=== PATIENT | male | born 1965 | race Caucasian/White ===

== ENCOUNTER 2023-09-29 10:40 | Inpatient (IN) | payer MEDICAID ==
[~2023-09-29] VITALS: Ht 175.3 cm; Wt 71.8 kg
[2023-09-29] VITALS (7 sets, daily range): BP systolic 90–107; BP diastolic 60–64; PULSE 99–118; RESP 16–21; TEMP 97.6–98.6; O2SAT 93–97
[2023-09-29] MEDS: methylPREDNISolone sod succ 125mg/2ml vial IV ONE (11:33)
[2023-09-29 11:37] LABS: BASOPHILS # (AUTO) 0.1 X10'3 (0-0.2); BASOPHILS % (AUTO) 0.8 % (0-1); EOSINOPHILS # (AUTO) 0.1 X10'3 (0-0.9); EOSINOPHILS % (AUTO) 0.9 % (0-6); HEMATOCRIT 43.7 % (42.0-52.0); HEMOGLOBIN 14.3 g/dl (14.0-17.9); LYMPHOCYTES # (AUTO) 1.6 X10'3 (1.1-4.8); MEAN CORPUSCULAR HEMOGLOBIN 29.3 PG (27.0-31.0); MEAN CORPUSCULAR HGB CONC 32.8 g/dL (33.0-36.5); MEAN CORPUSCULAR VOLUME 89.3 FL (78-98); MEAN PLATELET VOLUME 7.2 FL (7.4-10.4); MONOCYTES % (AUTO) 9.6 % (2-12); NEUTROPHILS % (AUTO) 73.7 % (42-75); PLATELET COUNT 252 X10'3 (140-440); RED BLOOD COUNT 4.89 X10'6 (4.70-6.10); WHITE BLOOD COUNT 10.8 X10'3 (4.5-11.0)
[2023-09-29] MEDS: albuterol 2.5 MG/3 ML nebule CONTNEB PRN (11:40)
[2023-09-29 11:49] LABS: ABG BASE EXCESS -0.5 mmol/L (-2.0-2.0); ABG HCO3 23.2 mmol/L (22.0-26.0); ABG PCO2 (T) 35.5 mmHg (35.0-48.0); ABG PH (T) 7.434 (7.340-7.440); ABG PO2 (T) 88.2 mmHg (75.0-100.0); ALLEN'S TEST POSITIVE; FCOHb 0.6 % (0.0-3.9); FMetHb 0.3 % (0.0-1.5); FO2Hb 96.1 % (94-97); MODE ROOM AIR; TOTAL HEMOGLOBIN 14.4 G/dl (14.0-17.9)
[2023-09-29 12:00] LABS: ANION GAP 9 (8-16); BLOOD UREA NITROGEN 14 MG/DL (7-18); BUN/CREATININE RATIO 15.6 (10.0-20.0); CALCIUM 8.8 MG/DL (8.5-10.1); CHLORIDE 104 MMOL/L (99-107); GLUCOSE 132 MG/DL (70-104); POTASSIUM 4.6 MMOL/L (3.5-5.1); PRO BRAIN NATRIURETIC PEPTIDE 12787 PG/ML (0-125); SODIUM 137 MMOL/L (135-145); TOTAL CARBON DIOXIDE 24.5 MMOL/L (24-32); eCRCL 91 ML/MIN; eGFR 87 ML/MIN
[2023-09-29] MEDS: furosemide 10 MG/1 ML 10ml inj IV ONE (12:39)
[2023-09-29] MEDS ORDERED: ondansetron/PF 4mg/2ml inj IV PRN (13:20)
[2023-09-29] MEDS ORDERED: magnesium Cl slow-release 64mg tablet PO PRN (13:20)
[2023-09-29] MEDS ORDERED: magnesium 2GM in 50ml NS 50 ML IV PRN (13:20)
[2023-09-29] MEDS ORDERED: magnesium 4gm in 100ml NS 100 ML IV PRN (13:20)
[2023-09-29] MEDS ORDERED: potassium Cl 40MEQ/1/2NS 520ml 520 ML IV PRN (13:20)
[2023-09-29] MEDS ORDERED: acetaminophen 325mg tablet PO PRN (13:20)
[2023-09-29] MEDS ORDERED: potassium Cl 20 mEq SR tablet PO PRN ×2 (13:20)
[2023-09-29] MEDS: PERFLUTREN PROTEIN-A MICROSPHR (Optison) 0.22 MG/ML 3ML VIAL IV ONE (13:35)
[2023-09-29 14:22] LABS: MAGNESIUM 1.8 MG/DL (1.5-2.4); POTASSIUM 3.9 MMOL/L (3.5-5.1)
[2023-09-29] MEDS: ipratropium/albuterol 3ml nebule NEB ONE (16:54)
[2023-09-29] MEDS ORDERED: NO HOME MEDS (17:21)
[2023-09-29] MEDS: K and/or MAG REPLACEMENT MC SCH (20:00)
[2023-09-29] MEDS: methylPREDNISolone sod succ/PF 40mg inj. IV SCH (20:11)
[2023-09-30 02:00] VITALS: BP 90/60; PULSE 104; RESP 19; TEMP 98; O2SAT 96
[2023-09-30 03:59] VITALS: BP 108/70; PULSE 114; RESP 20; O2SAT 98
[2023-09-30 06:00] VITALS: BP 94/53; PULSE 108; RESP 18; TEMP 97.9; O2SAT 94
[2023-09-30 06:14] LABS: BASOPHILS % (AUTO) 0.1 % (0-1); EOSINOPHILS % (AUTO) 0 % (0-6); HEMATOCRIT 41.9 % (42.0-52.0); HEMOGLOBIN 13.7 g/dl (14.0-17.9); LYMPHOCYTES # (AUTO) 0.6 X10'3 (1.1-4.8); MEAN CORPUSCULAR HGB CONC 32.6 g/dL (33.0-36.5); MEAN PLATELET VOLUME 7.2 FL (7.4-10.4); MONOCYTES # (AUTO) 0.2 X10'3 (0-0.9); MONOCYTES % (AUTO) 1.1 % (2-12); NEUTROPHILS # (AUTO) 18.5 X10'3 (1.8-7.7); NEUTROPHILS % (AUTO) 95.8 % (42-75); PLATELET COUNT 262 X10'3 (140-440); RED BLOOD COUNT 4.71 X10'6 (4.70-6.10); RED CELL DISTRIBUTION WIDTH 14.9 % (11.5-14.5); WHITE BLOOD COUNT 19.4 X10'3 (4.5-11.0)
[2023-09-30 06:29] LABS: ALBUMIN 2.6 G/DL (3.4-5.0); ANION GAP 6 (8-16); BLOOD UREA NITROGEN 17 MG/DL (7-18); BUN/CREATININE RATIO 18.1 (10.0-20.0); CALCIUM 8.5 MG/DL (8.5-10.1); CHLORIDE 98 MMOL/L (99-107); CREATININE 0.94 MG/DL (0.60-1.10); GLUCOSE 199 MG/DL (70-104); MAGNESIUM 1.7 MG/DL (1.5-2.4); POTASSIUM 3.9 MMOL/L (3.5-5.1); SODIUM 133 MMOL/L (135-145); eCRCL 87 ML/MIN; eGFR 83 ML/MIN
[2023-09-30] MEDS ORDERED: lisinopril 2.5mg tablet PO SCH (08:00)
[2023-09-30 08:45] VITALS: BP 108/73; PULSE 115
[2023-09-30] MEDS: furosemide 40mg/4ml inj IV SCH (08:45)
[2023-09-30] MEDS: carVEDilol 3.125mg tablet PO SCH (08:49)
== END 2023-09-30 10:26 | disposition left against medical advice (07) | DRG 144 ==
LOC: ER 10:41 → ED HOLD 13:24 → PCU 3S 21:15
PROVIDERS: ADMIT Internal Medicine; ATTEND Internal Medicine
DX: J98.01 Acute bronchospasm (principal); I50.23 Acute on chronic systolic (congestive) heart failure; I11.0 Hypertensive heart disease with heart failure; F15.90 Other stimulant use, unspecified, uncomplicated; J44.9 Chronic obstructive pulmonary disease, unspecified; Z87.891 Personal history of nicotine dependence; Z56.0 Unemployment, unspecified; Z59.00 Homelessness unspecified; Z79.899 Other long term (current) drug therapy; Z88.1 Allergy status to other antibiotic agents; Z88.5 Allergy status to narcotic agent; Z88.0 Allergy status to penicillin; Z71.51 Drug abuse counseling and surveillance of drug abuser
CPT/HCPCS: 36415; 36600; 71045; 80048; 82803; 83735; 83880; 84132; 84484; 85018; 85025; 87081; 87502; 87503; 93005; 93306; 94640; 94760; 96374; 96375; 99285; A7015; G0378; J1940; J2920; J2930

== ENCOUNTER 2023-10-02 09:50 | Inpatient (IN) | payer MEDICAID ==
[~2023-10-02] VITALS: Ht 175.3 cm; Wt 63.9 kg
[~2023-10-02 09:50] MED LIST: NO HOME MEDS
[2023-10-02 11:19] LABS: BASOPHILS # (AUTO) 0.1 X10'3 (0-0.2); BASOPHILS % (AUTO) 0.5 % (0-1); EOSINOPHILS # (AUTO) 0.1 X10'3 (0-0.9); EOSINOPHILS % (AUTO) 0.6 % (0-6); HEMOGLOBIN 14.4 g/dl (14.0-17.9); LYMPHOCYTES # (AUTO) 1.8 X10'3 (1.1-4.8); LYMPHOCYTES % (AUTO) 10.3 % (21-51); MEAN CORPUSCULAR VOLUME 90.4 FL (78-98); MONOCYTES # (AUTO) 1.3 X10'3 (0-0.9); MONOCYTES % (AUTO) 7.5 % (2-12); NEUTROPHILS # (AUTO) 14.1 X10'3 (1.8-7.7); NEUTROPHILS % (AUTO) 81.1 % (42-75); PLATELET COUNT 288 X10'3 (140-440); RED BLOOD COUNT 4.97 X10'6 (4.70-6.10); RED CELL DISTRIBUTION WIDTH 15.2 % (11.5-14.5); WHITE BLOOD COUNT 17.4 X10'3 (4.5-11.0)
[2023-10-02 11:45] LABS: ALBUMIN 3.1 G/DL (3.4-5.0); ANION GAP 4 (8-16); BLOOD UREA NITROGEN 22 MG/DL (7-18); CALCIUM 8.5 MG/DL (8.5-10.1); CHLORIDE 99 MMOL/L (99-107); GLUCOSE 125 MG/DL (70-104); POTASSIUM 4.1 MMOL/L (3.5-5.1); PRO BRAIN NATRIURETIC PEPTIDE 9541 PG/ML (0-125); SODIUM 133 MMOL/L (135-145); TOTAL CARBON DIOXIDE 30.2 MMOL/L (24-32); eCRCL 75 ML/MIN; eGFR 77 ML/MIN
[2023-10-02] MEDS: furosemide 10 MG/1 ML 10ml inj IV ONE (13:49)
[2023-10-02] MEDS ORDERED: acetaminophen 325mg tablet PO PRN (14:55)
[2023-10-02] MEDS ORDERED: magnesium Cl slow-release 64mg tablet PO PRN (14:55)
[2023-10-02] MEDS ORDERED: magnesium 4gm in 100ml NS 100 ML IV PRN (14:55)
[2023-10-02] MEDS ORDERED: potassium Cl 20 mEq SR tablet PO PRN ×2 (14:55)
[2023-10-02] MEDS ORDERED: ondansetron/PF 4mg/2ml inj IV PRN (14:55)
[2023-10-02] MEDS ORDERED: magnesium 2GM in 50ml NS 50 ML IV PRN (14:55)
[2023-10-02] MEDS ORDERED: potassium Cl 40MEQ/1/2NS 520ml 520 ML IV PRN (14:55)
[2023-10-02 20:00] VITALS: RESP 24; O2SAT 98
[2023-10-02] MEDS: K and/or MAG REPLACEMENT MC SCH (20:00)
[2023-10-02 21:50] VITALS: BP 108/73; PULSE 117; RESP 24; TEMP 98; O2SAT 98
[2023-10-02] MEDS: lisinopril 5mg tablet PO SCH (22:59)
[2023-10-03 02:00] VITALS: BP 115/80; PULSE 110; RESP 20; TEMP 97.1; O2SAT 97
[2023-10-03 07:00] VITALS: BP 107/77; PULSE 106; RESP 20; TEMP 97.8; O2SAT 100
[2023-10-03] MEDS: furosemide 40mg/4ml inj IV SCH (07:35)
[2023-10-03 07:55] LABS: BASOPHILS # (AUTO) 0.1 X10'3 (0-0.2); BASOPHILS % (AUTO) 0.6 % (0-1); EOSINOPHILS # (AUTO) 0.1 X10'3 (0-0.9); EOSINOPHILS % (AUTO) 1.2 % (0-6); HEMOGLOBIN 14.4 g/dl (14.0-17.9); LYMPHOCYTES # (AUTO) 2.3 X10'3 (1.1-4.8); LYMPHOCYTES % (AUTO) 20.7 % (21-51); MEAN CORPUSCULAR HEMOGLOBIN 29.2 PG (27.0-31.0); MEAN CORPUSCULAR HGB CONC 32.7 g/dL (33.0-36.5); MEAN CORPUSCULAR VOLUME 89.4 FL (78-98); MONOCYTES # (AUTO) 1.2 X10'3 (0-0.9); MONOCYTES % (AUTO) 11.2 % (2-12); NEUTROPHILS # (AUTO) 7.2 X10'3 (1.8-7.7); NEUTROPHILS % (AUTO) 66.3 % (42-75); PLATELET COUNT 268 X10'3 (140-440); RED BLOOD COUNT 4.92 X10'6 (4.70-6.10); RED CELL DISTRIBUTION WIDTH 15.2 % (11.5-14.5); WHITE BLOOD COUNT 10.9 X10'3 (4.5-11.0)
[2023-10-03 08:00] VITALS: RESP 16; O2SAT 99
[2023-10-03 08:07] LABS: ALBUMIN 2.7 G/DL (3.4-5.0); ANION GAP 1 (8-16); BLOOD UREA NITROGEN 23 MG/DL (7-18); BUN/CREATININE RATIO 23.2 (10.0-20.0); CALCIUM 8.8 MG/DL (8.5-10.1); CHLORIDE 100 MMOL/L (99-107); CREATININE 0.99 MG/DL (0.60-1.10); GLUCOSE 90 MG/DL (70-104); POTASSIUM 4.3 MMOL/L (3.5-5.1); SODIUM 134 MMOL/L (135-145); TOTAL CARBON DIOXIDE 33.2 MMOL/L (24-32); eCRCL 74 ML/MIN; eGFR 78 ML/MIN
[2023-10-03 08:41] VITALS: BP_SYST 107
[2023-10-03] MEDS: carVEDilol 3.125mg tablet PO SCH (08:41)
[2023-10-03 11:00] VITALS: PULSE 95; RESP 17; TEMP 97.2; O2SAT 96
[2023-10-03] MEDS ORDERED: FURO-149 PO (13:47)
[2023-10-03] MEDS ORDERED: LISI5TAB22 PO (13:47)
[2023-10-03] MEDS ORDERED: COR3.125T PO (13:47)
[2023-10-04 15:51] LABS: HBSAG SCREEN Negative (Negative); HEP B CORE AB, IGM Negative (Negative); HEP B CORE AB, TOT Negative (Negative)
== END 2023-10-03 14:30 | disposition home or self-care (01) | DRG 194 ==
LOC: ER 09:51 → ED HOLD 14:57 → EDBEDREQ 21:02 → PCU 3S 21:35
PROVIDERS: ADMIT Internal Medicine; ATTEND Internal Medicine
DX: I50.23 Acute on chronic systolic (congestive) heart failure (principal); I21.A1 Myocardial infarction type 2; I42.9 Cardiomyopathy, unspecified; E87.1 Hypo-osmolality and hyponatremia; Z59.00 Homelessness unspecified; Z88.0 Allergy status to penicillin; Z88.5 Allergy status to narcotic agent; Z56.0 Unemployment, unspecified
CPT/HCPCS: 36415; 71045; 80048; 83605; 83735; 83880; 84145; 84484; 85025; 86704; 86705; 87081; 87340; 93005; 99285; G0378; J1940

== ENCOUNTER 2024-07-29 15:25 | Inpatient (IN) | payer MEDICAID ==
[~2024-07-29] VITALS: Ht 175.3 cm; Wt 65.9 kg
[~2024-07-29 15:25] MED LIST changes: +CARV3.1232 PO; +FURO-149 PO; +LISI5TAB22 PO
[2024-07-29 16:49] LABS: BASOPHILS # (AUTO) 0.1 X10'3 (0-0.2); BASOPHILS % (AUTO) 1.2 % (0-1); EOSINOPHILS # (AUTO) 0.2 X10'3 (0-0.9); EOSINOPHILS % (AUTO) 2.4 % (0-6); HEMATOCRIT 43.7 % (42.0-52.0); HEMOGLOBIN 14.2 g/dl (14.0-17.9); LYMPHOCYTES # (AUTO) 2.5 X10'3 (1.1-4.8); LYMPHOCYTES % (AUTO) 24.5 % (21-51); MEAN CORPUSCULAR HEMOGLOBIN 29.8 PG (27.0-31.0); MEAN CORPUSCULAR HGB CONC 32.4 g/dL (33.0-36.5); MEAN CORPUSCULAR VOLUME 91.9 FL (78-98); MEAN PLATELET VOLUME 7.3 FL (7.4-10.4); MONOCYTES # (AUTO) 0.9 X10'3 (0-0.9); MONOCYTES % (AUTO) 8.3 % (2-12); NEUTROPHILS # (AUTO) 6.5 X10'3 (1.8-7.7); NEUTROPHILS % (AUTO) 63.6 % (42-75); PLATELET COUNT 297 X10'3 (140-440); RED BLOOD COUNT 4.75 X10'6 (4.70-6.10); RED CELL DISTRIBUTION WIDTH 15.8 % (11.5-14.5); WHITE BLOOD COUNT 10.3 X10'3 (4.5-11.0)
[2024-07-29 17:04] LABS: ALANINE AMINOTRANSFERASE 44 U/L (12-78); ALBUMIN 3.7 G/DL (3.4-5.0); ALBUMIN/GLOBULIN RATIO 0.8 (1.1-1.5); ALKALINE PHOSPHATASE 125 IU/L (46-116); ANION GAP 11 (8-16); ASPARTATE AMINO TRANSFERASE 43 U/L (10-37); BILIRUBIN,TOTAL 1.5 MG/DL (0.1-1.0); BLOOD UREA NITROGEN 33 MG/DL (7-18); BUN/CREATININE RATIO 26.4 (10.0-20.0); CALCIUM 9.2 MG/DL (8.5-10.1); CHLORIDE 99 MMOL/L (99-107); CREATININE 1.25 MG/DL (0.60-1.10); GLUCOSE 106 MG/DL (70-104); SODIUM 136 MMOL/L (135-145); TOTAL CARBON DIOXIDE 26.3 MMOL/L (24-32); TOTAL PROTEIN 8.2 G/DL (6.4-8.2); eCRCL 60 ML/MIN; eGFR 59 ML/MIN
[2024-07-29 17:11] LABS: PRO BRAIN NATRIURETIC PEPTIDE 26589 PG/ML (0-125)
[2024-07-29] MEDS: ipratropium/albuterol 3ml nebule NEB STA ×2 (17:12→19:26)
[2024-07-29 17:13] VITALS: PULSE 108; RESP 22; O2SAT 97
[2024-07-29 17:21] VITALS: PULSE 107; RESP 20; O2SAT 97
[2024-07-29 17:22] LABS: POTASSIUM 4.9 MMOL/L (3.5-5.1)
[2024-07-29] MEDS: furosemide 20 MG/2 ML vial IV ONE (18:14)
[2024-07-29] MEDS: methylPREDNISolone sod succ/PF 40mg inj. IV STA (19:25)
[2024-07-29 19:26] VITALS: PULSE 112; RESP 6; O2SAT 99
[2024-07-29 19:37] VITALS: PULSE 111; RESP 2; O2SAT 99
[2024-07-29] MEDS ORDERED: potassium Cl 20 mEq SR tablet PO PRN ×2 (20:55)
[2024-07-29] MEDS ORDERED: magnesium sulf-water 2g/50mL 50 ML IV PRN (20:55)
[2024-07-29] MEDS ORDERED: magnesium hydroxide 30ml (MOM) UD suspension PO PRN (20:55)
[2024-07-29] MEDS ORDERED: potassium Cl 40MEQ/1/2NS 520ml 520 ML IV PRN (20:55)
[2024-07-29] MEDS ORDERED: magnesium sulf-water 4G/100mL 100 ML IV PRN (20:55)
[2024-07-29] MEDS ORDERED: acetaminophen 325mg tablet PO PRN (20:55)
[2024-07-29] MEDS ORDERED: ondansetron/PF 4mg/2ml inj IV PRN (20:55)
[2024-07-29] MEDS ORDERED: magnesium Cl slow-release 64mg tablet PO PRN (20:55)
[2024-07-29] MEDS ORDERED: mag hydrox/Alum hydrox/simeth 30ml oral suspension PO PRN (20:55)
[2024-07-29 23:05] VITALS: BP 99/70; PULSE 105; RESP 28; TEMP 97.9; O2SAT 98
[2024-07-29] MEDS ORDERED: ipratropium/albuterol 3ml nebule NEB PRN (23:20)
[2024-07-29] MEDS ORDERED: LORazepam 1 MG tablet PO PRN (23:30)
[2024-07-30] VITALS (13 sets, daily range): BP systolic 82–120; BP diastolic 42–76; PULSE 70–109; RESP 12–24; TEMP 96.7–97.7; O2SAT 96–99
[2024-07-30] MEDS: azithromycin 250mg tablet PO ONE (00:18)
[2024-07-30] MEDS: thiamine 100mg tablet PO SCH (00:19)
[2024-07-30] MEDS: folic acid 1mg tablet PO SCH (00:19)
[2024-07-30] MEDS: methylPREDNISolone sod succ 125mg/2ml vial IV ONE (00:19)
[2024-07-30] MEDS: CefTRIAXone/D5W-Rocephin 1gm 50 ML IV SCH (00:19)
[2024-07-30] MEDS: EMPAGLIFLOZIN 10 MG TABLET PO SCH (00:19)
[2024-07-30] MEDS: ipratropium/albuterol 3ml nebule NEB SCH ×2 (02:21→09:18)
[2024-07-30 03:29] LABS: OSMOLALITY 294 MOSM/K (280-300)
[2024-07-30 03:34] LABS: ETHANOL < 10 MG/DL (<10)
[2024-07-30] MEDS ORDERED: PERFLUTREN PROTEIN-A MICROSPHR (Optison) 0.22 MG/ML 3ML VIAL IV ONE (07:45)
[2024-07-30 07:57] LABS: BASOPHILS # (AUTO) 0.1 X10'3 (0-0.2); BASOPHILS % (AUTO) 0.7 % (0-1); EOSINOPHILS % (AUTO) 0 % (0-6); HEMATOCRIT 41.8 % (42.0-52.0); HEMOGLOBIN 13.6 g/dl (14.0-17.9); LYMPHOCYTES # (AUTO) 0.7 X10'3 (1.1-4.8); LYMPHOCYTES % (AUTO) 7.3 % (21-51); MEAN CORPUSCULAR HEMOGLOBIN 29.3 PG (27.0-31.0); MEAN CORPUSCULAR HGB CONC 32.5 g/dL (33.0-36.5); MEAN CORPUSCULAR VOLUME 90.1 FL (78-98); MONOCYTES # (AUTO) 0.1 X10'3 (0-0.9); MONOCYTES % (AUTO) 1.1 % (2-12); NEUTROPHILS # (AUTO) 8.3 X10'3 (1.8-7.7); NEUTROPHILS % (AUTO) 90.9 % (42-75); PLATELET COUNT 296 X10'3 (140-440); RED BLOOD COUNT 4.64 X10'6 (4.70-6.10); RED CELL DISTRIBUTION WIDTH 15.7 % (11.5-14.5); WHITE BLOOD COUNT 9.2 X10'3 (4.5-11.0)
[2024-07-30] MEDS: lisinopril 5mg tablet PO SCH (08:00)
[2024-07-30] MEDS: K and/or MAG REPLACEMENT MC SCH (08:00)
[2024-07-30 08:06] LABS: INR 1.3 INR; PROTHROMBIN TIME 13.7 SECONDS (9.0-12.0)
[2024-07-30 08:43] LABS: ALANINE AMINOTRANSFERASE 35 U/L (12-78); ALBUMIN 3.1 G/DL (3.4-5.0); ALBUMIN/GLOBULIN RATIO 0.8 (1.1-1.5); ALKALINE PHOSPHATASE 104 IU/L (46-116); AMYLASE 43 U/L (25-115); ANION GAP 10 (8-16); ASPARTATE AMINO TRANSFERASE 33 U/L (10-37); BILIRUBIN,TOTAL 1.5 MG/DL (0.1-1.0); BLOOD UREA NITROGEN 30 MG/DL (7-18); BUN/CREATININE RATIO 24.6 (10.0-20.0); CALCIUM 8.6 MG/DL (8.5-10.1); CHLORIDE 97 MMOL/L (99-107); CHOL/HDL RATIO 3.7 (0.00-4.99); CHOLESTEROL 129 MG/DL (0-200); CREATININE 1.22 MG/DL (0.60-1.10); GLUCOSE 133 MG/DL (70-104); HDL CHOLESTEROL 35 MG/DL (35-60); LDL CHOLESTEROL 84 MG/DL (50-100); LIPASE 64 U/L (16-77); MAGNESIUM 1.8 MG/DL (1.5-2.4); PHOSPHORUS 3.8 MG/DL (2.3-4.5); POTASSIUM 4.2 MMOL/L (3.5-5.1); PRO BRAIN NATRIURETIC PEPTIDE 20221 PG/ML (0-125); SODIUM 132 MMOL/L (135-145); TOTAL CARBON DIOXIDE 25.5 MMOL/L (24-32); TOTAL PROTEIN 7.2 G/DL (6.4-8.2); TRIGLYCERIDES 51 MG/DL (20-135); eCRCL 62 ML/MIN; eGFR 61 ML/MIN
[2024-07-30] MEDS: methylPREDNISolone sod succ/PF 40mg inj. IV SCH (09:28)
[2024-07-30] MEDS: furosemide 20 MG/2 ML vial IV SCH (09:31)
[2024-07-30] MEDS: cetirizine 10mg tablet PO SCH (09:32)
[2024-07-30] MEDS: carVEDilol 3.125mg tablet PO SCH (09:32)
[2024-07-30] MEDS: heparin, porcine 5000 units/ml vial SQ SCH (09:44)
[2024-07-30] MEDS: nicotine 14mg patch - 24hr TD SCH (09:45)
[2024-07-30] MEDS: Permethrin Cream 60gm TP ONE (09:45)
[2024-07-30 10:36] LABS: OSMOLALITY UA 370 MOSM/K (50-1400)
[2024-07-30 10:49] LABS: URINE AMPHETAMINE SCREEN POSITIVE (Neg); URINE BARBITUATE SCREEN NEGATIVE (Neg); URINE BENZODIAZEPINES SCREEN NEGATIVE (Neg); URINE CANNABINOID SCREEN POSITIVE (Neg); URINE COCAINE SCREEN NEGATIVE (Neg); URINE METHADONE SCREEN NEGATIVE (Neg); URINE OPIATE SCREEN NEGATIVE (Neg); URINE PHENCYCLIDINE SCREEN NEGATIVE (Neg)
[2024-07-30 11:07] LABS: SODIUM,URINE RANDOM < 15 MEQ/L; TOTAL PROTEIN,URINE RANDOM < 6.0 MG/DL
[2024-07-30] MEDS ORDERED: albuterol 2.5 MG/3 ML nebule NEB PRN (18:25)
[2024-07-31 02:00] VITALS: BP 116/63; PULSE 65; RESP 18; TEMP 97.7; O2SAT 94
[2024-07-31 06:00] VITALS: BP 96/62; PULSE 96; RESP 13; TEMP 97.7; O2SAT 96
[2024-07-31 06:47] LABS: BASOPHILS # (AUTO) 0.1 X10'3 (0-0.2); BASOPHILS % (AUTO) 0.3 % (0-1); EOSINOPHILS % (AUTO) 0 % (0-6); HEMATOCRIT 42.8 % (42.0-52.0); LYMPHOCYTES # (AUTO) 0.6 X10'3 (1.1-4.8); LYMPHOCYTES % (AUTO) 2.9 % (21-51); MEAN CORPUSCULAR HEMOGLOBIN 29.4 PG (27.0-31.0); MEAN CORPUSCULAR HGB CONC 32.8 g/dL (33.0-36.5); MEAN CORPUSCULAR VOLUME 89.5 FL (78-98); MEAN PLATELET VOLUME 6.9 FL (7.4-10.4); MONOCYTES # (AUTO) 0.6 X10'3 (0-0.9); MONOCYTES % (AUTO) 2.8 % (2-12); NEUTROPHILS # (AUTO) 20.5 X10'3 (1.8-7.7); PLATELET COUNT 321 X10'3 (140-440); RED BLOOD COUNT 4.78 X10'6 (4.70-6.10); RED CELL DISTRIBUTION WIDTH 15.4 % (11.5-14.5); WHITE BLOOD COUNT 21.8 X10'3 (4.5-11.0)
[2024-07-31 06:54] LABS: INR 1.2 INR; PROTHROMBIN TIME 12.6 SECONDS (9.0-12.0)
[2024-07-31 07:19] LABS: ALANINE AMINOTRANSFERASE 37 U/L (12-78); ALBUMIN 3.1 G/DL (3.4-5.0); ALBUMIN/GLOBULIN RATIO 0.8 (1.1-1.5); ALKALINE PHOSPHATASE 101 IU/L (46-116); AMYLASE 54 U/L (25-115); ANION GAP 7 (8-16); ASPARTATE AMINO TRANSFERASE 27 U/L (10-37); BLOOD UREA NITROGEN 32 MG/DL (7-18); BUN/CREATININE RATIO 35.6 (10.0-20.0); CALCIUM 8.8 MG/DL (8.5-10.1); CHLORIDE 101 MMOL/L (99-107); GLUCOSE 139 MG/DL (70-104); LIPASE 83 U/L (16-77); MAGNESIUM 2.1 MG/DL (1.5-2.4); PHOSPHORUS 3.4 MG/DL (2.3-4.5); POTASSIUM 3.7 MMOL/L (3.5-5.1); SODIUM 138 MMOL/L (135-145); TOTAL CARBON DIOXIDE 30.3 MMOL/L (24-32); eCRCL 83 ML/MIN; eGFR 87 ML/MIN
[2024-07-31] MEDS: ipratropium/albuterol 3ml nebule NEB SCH (08:02)
[2024-07-31 08:04] VITALS: PULSE 103; RESP 17; O2SAT 98
[2024-07-31 08:16] VITALS: PULSE 101; RESP 18
[2024-07-31 09:48] VITALS: BP_SYST 96; PULSE 96
[2024-07-31] MEDS ORDERED: FOLI1TAB27 PO (12:38)
[2024-07-31] MEDS ORDERED: THIA50TA10 PO (12:38)
[2024-07-31] MEDS ORDERED: EMPA10TA PO (12:38)
[2024-07-31] MEDS ORDERED: SPIR25TA5 PO (12:38)
[2024-07-31] MEDS ORDERED: ALBU8HFA PO (12:41)
[2024-07-31] MEDS ORDERED: CEFD300C3 PO (12:46)
[2024-07-31] MEDS ORDERED: LACT1CAP26 PO (12:51)
== END 2024-07-31 14:23 | disposition home or self-care (01) | DRG 133 ==
LOC: ER 15:25 → ED HOLD 20:57 → PCU 3S 22:58
PROVIDERS: ADMIT Surgery Surgical Critical Care; ATTEND Family Medicine
DX: J96.21 Acute and chronic respiratory failure with hypoxia (principal); N17.0 Acute kidney failure with tubular necrosis; I50.23 Acute on chronic systolic (congestive) heart failure; J44.1 Chronic obstructive pulmonary disease with (acute) exacerbation; I42.7 Cardiomyopathy due to drug and external agent; I44.7 Left bundle-branch block, unspecified; F17.210 Nicotine dependence, cigarettes, uncomplicated; Z88.1 Allergy status to other antibiotic agents; Z88.5 Allergy status to narcotic agent; Z59.00 Homelessness unspecified
CPT/HCPCS: 36415; 71045; 76700; 80053; 80061; 80305; 80320; 82150; 82570; 82948; 83690; 83735; 83880; 83930; 83935; 84100; 84156; 84300; 84484; 85025; 85610; 87081; 87207; 93005; 93306; 94640; 94760; 97116; 97161; 97530; 99285; G0378; J0696; J1644; J1940; J2919; J7040; J7120

== ENCOUNTER 2024-08-04 13:10 | Emergency (ER) | payer MEDICAID ==
[~2024-08-04] VITALS: Ht 175.3 cm; Wt 66.0 kg
[~2024-08-04 13:10] MED LIST changes: +ALBU8HFA PO; +CEFD300C3 PO; +EMPA10TA PO; +FOLI1TAB27 PO; +LACT1CAP26 PO; +SPIR25TA5 PO; +THIA50TA10 PO
[2024-08-04 13:13] VITALS: TEMP 97.5
[2024-08-04 15:15] LABS: BASOPHILS # (AUTO) 0.1 X10'3 (0-0.2); BASOPHILS % (AUTO) 0.7 % (0-1); EOSINOPHILS # (AUTO) 0.2 X10'3 (0-0.9); EOSINOPHILS % (AUTO) 1.3 % (0-6); HEMOGLOBIN 15.7 g/dl (14.0-17.9); LYMPHOCYTES # (AUTO) 2.1 X10'3 (1.1-4.8); LYMPHOCYTES % (AUTO) 16.8 % (21-51); MEAN CORPUSCULAR VOLUME 90.7 FL (78-98); MEAN PLATELET VOLUME 6.6 FL (7.4-10.4); MONOCYTES % (AUTO) 8.2 % (2-12); NEUTROPHILS # (AUTO) 9.3 X10'3 (1.8-7.7); PLATELET COUNT 368 X10'3 (140-440); RED CELL DISTRIBUTION WIDTH 15.5 % (11.5-14.5); WHITE BLOOD COUNT 12.7 X10'3 (4.5-11.0)
[2024-08-04 15:36] LABS: ALBUMIN 3.9 G/DL (3.4-5.0); ANION GAP 8 (8-16); BLOOD UREA NITROGEN 26 MG/DL (7-18); CALCIUM 9.3 MG/DL (8.5-10.1); CHLORIDE 96 MMOL/L (99-107); CREATININE 0.93 MG/DL (0.60-1.10); GLUCOSE 109 MG/DL (70-104); POTASSIUM 4.3 MMOL/L (3.5-5.1); PRO BRAIN NATRIURETIC PEPTIDE 11675 PG/ML (0-125); SODIUM 133 MMOL/L (135-145); TOTAL CARBON DIOXIDE 29.3 MMOL/L (24-32); eCRCL 81 ML/MIN; eGFR 83 ML/MIN
[2024-08-04 16:37] VITALS: BP 145/78; PULSE 102; RESP 21; O2SAT 99
[2024-08-04 16:51] LABS: PLATELET ESTIMATE NORMAL; TOTAL CELLS COUNTED 100
== END 2024-08-04 16:51 | disposition home or self-care (01) ==
LOC: ER 13:11
DX: F15.90 Other stimulant use, unspecified, uncomplicated (principal); I50.9 Heart failure, unspecified; F12.90 Cannabis use, unspecified, uncomplicated; Z88.0 Allergy status to penicillin; Z88.5 Allergy status to narcotic agent; Z79.899 Other long term (current) drug therapy
CPT/HCPCS: 36415; 71046; 80048; 83880; 84484; 85007; 85025; 93005; 99285

== ENCOUNTER 2024-08-18 11:38 | Inpatient (IN) | payer MEDICAID ==
[~2024-08-18] VITALS: Ht 175.3 cm; Wt 65.1 kg
[~2024-08-18 11:38] MED LIST changes: -CARV3.1232 PO; +CARV6.253 PO; -CEFD300C3 PO; -LACT1CAP26 PO; -NO HOME MEDS
[2024-08-18 12:31] LABS: BASOPHILS # (AUTO) 0.1 X10'3 (0-0.2); BASOPHILS % (AUTO) 0.7 % (0-1); EOSINOPHILS # (AUTO) 0.2 X10'3 (0-0.9); EOSINOPHILS % (AUTO) 1.9 % (0-6); HEMATOCRIT 44.2 % (42.0-52.0); HEMOGLOBIN 14.4 g/dl (14.0-17.9); LYMPHOCYTES % (AUTO) 19.7 % (21-51); MEAN CORPUSCULAR HEMOGLOBIN 29.4 PG (27.0-31.0); MEAN CORPUSCULAR HGB CONC 32.7 g/dL (33.0-36.5); MEAN CORPUSCULAR VOLUME 89.7 FL (78-98); MEAN PLATELET VOLUME 7.4 FL (7.4-10.4); MONOCYTES # (AUTO) 0.9 X10'3 (0-0.9); NEUTROPHILS # (AUTO) 7.1 X10'3 (1.8-7.7); NEUTROPHILS % (AUTO) 68.7 % (42-75); PLATELET COUNT 316 X10'3 (140-440); RED BLOOD COUNT 4.92 X10'6 (4.70-6.10); RED CELL DISTRIBUTION WIDTH 15.9 % (11.5-14.5); WHITE BLOOD COUNT 10.4 X10'3 (4.5-11.0)
[2024-08-18 12:33] LABS: ALANINE AMINOTRANSFERASE 42 U/L (12-78); ALBUMIN 3.9 G/DL (3.4-5.0); ALKALINE PHOSPHATASE 124 IU/L (46-116); ANION GAP 12 (8-16); ASPARTATE AMINO TRANSFERASE 38 U/L (10-37); BILIRUBIN,TOTAL 1.9 MG/DL (0.1-1.0); BLOOD UREA NITROGEN 33 MG/DL (7-18); BUN/CREATININE RATIO 29.5 (10.0-20.0); CALCIUM 8.9 MG/DL (8.5-10.1); CHLORIDE 99 MMOL/L (99-107); CREATININE 1.12 MG/DL (0.60-1.10); GLUCOSE 123 MG/DL (70-104); POTASSIUM 4.5 MMOL/L (3.5-5.1); PRO BRAIN NATRIURETIC PEPTIDE 14612 PG/ML (0-125); SODIUM 134 MMOL/L (135-145); TOTAL CARBON DIOXIDE 22.8 MMOL/L (24-32); TOTAL PROTEIN 7.8 G/DL (6.4-8.2); eCRCL 65 ML/MIN; eGFR 67 ML/MIN
[2024-08-18] MEDS: furosemide 10 MG/1 ML 10ml inj IV ONE (15:10)
[2024-08-18] MEDS: ipratropium/albuterol 3ml nebule NEB ONE (15:26)
[2024-08-18 15:28] VITALS: PULSE 106; PULSE 201; RESP 20; RESP 24; O2SAT 100; O2SAT 99
[2024-08-18] MEDS ORDERED: CARV-50 PO (18:42)
[2024-08-18] MEDS ORDERED: magnesium sulf-water 2g/50mL 50 ML IV PRN (21:15)
[2024-08-18] MEDS ORDERED: magnesium Cl slow-release 64mg tablet PO PRN (21:15)
[2024-08-18] MEDS ORDERED: acetaminophen 325mg tablet PO PRN (21:15)
[2024-08-18] MEDS ORDERED: magnesium sulf-water 4G/100mL 100 ML IV PRN (21:15)
[2024-08-18] MEDS ORDERED: potassium Cl 20 mEq SR tablet PO PRN (21:15)
[2024-08-18] MEDS ORDERED: potassium Cl 40MEQ/1/2NS 520ml 520 ML IV PRN (21:15)
[2024-08-18] MEDS ORDERED: ondansetron/PF 4mg/2ml inj IV PRN (21:15)
[2024-08-18] MEDS: EMPAGLIFLOZIN 10 MG TABLET PO SCH (21:46)
[2024-08-18] MEDS: folic acid 1mg tablet PO SCH (21:47)
[2024-08-18] MEDS: lisinopril 5mg tablet PO SCH (21:49)
[2024-08-18] MEDS: spironolactone 25 MG tablet PO SCH (21:49)
[2024-08-19 01:54] LABS: BASOPHILS # (AUTO) 0.1 X10'3 (0-0.2); BASOPHILS % (AUTO) 1.1 % (0-1); EOSINOPHILS # (AUTO) 0.4 X10'3 (0-0.9); EOSINOPHILS % (AUTO) 3.7 % (0-6); HEMATOCRIT 40.7 % (42.0-52.0); HEMOGLOBIN 13.4 g/dl (14.0-17.9); LYMPHOCYTES # (AUTO) 2.4 X10'3 (1.1-4.8); LYMPHOCYTES % (AUTO) 25.5 % (21-51); MEAN CORPUSCULAR HEMOGLOBIN 29.3 PG (27.0-31.0); MEAN CORPUSCULAR VOLUME 88.8 FL (78-98); MEAN PLATELET VOLUME 7.2 FL (7.4-10.4); MONOCYTES # (AUTO) 0.9 X10'3 (0-0.9); MONOCYTES % (AUTO) 9.9 % (2-12); NEUTROPHILS # (AUTO) 5.7 X10'3 (1.8-7.7); NEUTROPHILS % (AUTO) 59.8 % (42-75); PLATELET COUNT 297 X10'3 (140-440); RED BLOOD COUNT 4.58 X10'6 (4.70-6.10); RED CELL DISTRIBUTION WIDTH 15.8 % (11.5-14.5); WHITE BLOOD COUNT 9.5 X10'3 (4.5-11.0)
[2024-08-19 02:08] LABS: ALBUMIN 3.3 G/DL (3.4-5.0); ANION GAP 10 (8-16); BLOOD UREA NITROGEN 37 MG/DL (7-18); BUN/CREATININE RATIO 34.3 (10.0-20.0); CALCIUM 8.2 MG/DL (8.5-10.1); CHLORIDE 99 MMOL/L (99-107); CREATININE 1.08 MG/DL (0.60-1.10); GLUCOSE 105 MG/DL (70-104); MAGNESIUM 1.9 MG/DL (1.5-2.4); POTASSIUM 3.4 MMOL/L (3.5-5.1); SODIUM 133 MMOL/L (135-145); TOTAL CARBON DIOXIDE 24.5 MMOL/L (24-32); eCRCL 68 ML/MIN; eGFR 70 ML/MIN
[2024-08-19] MEDS: carVEDilol 3.125mg tablet PO SCH (08:00)
[2024-08-19] MEDS: furosemide 10 MG/1 ML 10ml inj IV SCH (08:00)
[2024-08-19] MEDS ORDERED: carVEDilol 12.5mg tablet PO SCH (08:00)
[2024-08-19 08:16] VITALS: BP 98/69; PULSE 96; RESP 18; TEMP 98; O2SAT 100
[2024-08-19] MEDS: K and/or MAG REPLACEMENT MC SCH (08:18)
[2024-08-19] MEDS: thiamine 100mg tablet PO SCH (08:39)
[2024-08-19] MEDS: potassium Cl 20 mEq SR tablet PO PRN (09:12)
[2024-08-19 11:09] VITALS: BP 95/64; PULSE 99; RESP 18; TEMP 98.2; O2SAT 100
[2024-08-19 14:55] VITALS: BP 94/61; PULSE 99; RESP 16; TEMP 97.8; O2SAT 96
[2024-08-19 18:00] VITALS: BP 113/96; PULSE 109; RESP 28; TEMP 97.7; O2SAT 100
[2024-08-19 20:00] VITALS: RESP 28; O2SAT 100
[2024-08-20] VITALS (9 sets, daily range): BP systolic 89–138; BP diastolic 61–90; PULSE 83–105; RESP 17–26; TEMP 97.7–98.3; O2SAT 94–100
[2024-08-20 06:36] LABS: BASOPHILS # (AUTO) 0.1 X10'3 (0-0.2); BASOPHILS % (AUTO) 1.2 % (0-1); EOSINOPHILS # (AUTO) 0.3 X10'3 (0-0.9); EOSINOPHILS % (AUTO) 3.6 % (0-6); HEMATOCRIT 41.2 % (42.0-52.0); HEMOGLOBIN 13.6 g/dl (14.0-17.9); LYMPHOCYTES # (AUTO) 1.9 X10'3 (1.1-4.8); LYMPHOCYTES % (AUTO) 20.5 % (21-51); MEAN CORPUSCULAR HEMOGLOBIN 29.4 PG (27.0-31.0); MEAN CORPUSCULAR HGB CONC 32.9 g/dL (33.0-36.5); MEAN CORPUSCULAR VOLUME 89.5 FL (78-98); MEAN PLATELET VOLUME 6.9 FL (7.4-10.4); MONOCYTES # (AUTO) 1.2 X10'3 (0-0.9); MONOCYTES % (AUTO) 13.1 % (2-12); NEUTROPHILS # (AUTO) 5.7 X10'3 (1.8-7.7); NEUTROPHILS % (AUTO) 61.6 % (42-75); PLATELET COUNT 300 X10'3 (140-440); RED BLOOD COUNT 4.61 X10'6 (4.70-6.10); RED CELL DISTRIBUTION WIDTH 16.1 % (11.5-14.5); WHITE BLOOD COUNT 9.3 X10'3 (4.5-11.0)
[2024-08-20 07:18] LABS: ALBUMIN 3.2 G/DL (3.4-5.0); ANION GAP 8 (8-16); BLOOD UREA NITROGEN 28 MG/DL (7-18); BUN/CREATININE RATIO 25.2 (10.0-20.0); CALCIUM 8.5 MG/DL (8.5-10.1); CHLORIDE 102 MMOL/L (99-107); CREATININE 1.11 MG/DL (0.60-1.10); GLUCOSE 84 MG/DL (70-104); MAGNESIUM 2.1 MG/DL (1.5-2.4); POTASSIUM 4.3 MMOL/L (3.5-5.1); SODIUM 136 MMOL/L (135-145); TOTAL CARBON DIOXIDE 25.7 MMOL/L (24-32); eCRCL 66 ML/MIN; eGFR 68 ML/MIN
[2024-08-20] MEDS: ipratropium/albuterol 3ml nebule NEB PRN (16:46)
[2024-08-20] MEDS: methylPREDNISolone sod succ 125mg/2ml vial IV SCH (20:39)
[2024-08-21 06:00] VITALS: BP 124/77; PULSE 100; RESP 17; TEMP 97.5; O2SAT 99
[2024-08-21 06:40] LABS: BASOPHILS % (AUTO) 0.3 % (0-1); EOSINOPHILS % (AUTO) 0.1 % (0-6); HEMATOCRIT 45.4 % (42.0-52.0); HEMOGLOBIN 14.9 g/dl (14.0-17.9); LYMPHOCYTES # (AUTO) 0.8 X10'3 (1.1-4.8); LYMPHOCYTES % (AUTO) 11.1 % (21-51); MEAN CORPUSCULAR HEMOGLOBIN 29.4 PG (27.0-31.0); MEAN CORPUSCULAR HGB CONC 32.9 g/dL (33.0-36.5); MEAN CORPUSCULAR VOLUME 89.4 FL (78-98); MEAN PLATELET VOLUME 6.8 FL (7.4-10.4); MONOCYTES # (AUTO) 0.1 X10'3 (0-0.9); MONOCYTES % (AUTO) 1.5 % (2-12); NEUTROPHILS # (AUTO) 6.5 X10'3 (1.8-7.7); PLATELET COUNT 321 X10'3 (140-440); RED BLOOD COUNT 5.08 X10'6 (4.70-6.10); RED CELL DISTRIBUTION WIDTH 15.8 % (11.5-14.5); WHITE BLOOD COUNT 7.5 X10'3 (4.5-11.0)
[2024-08-21 06:42] LABS: ALBUMIN 3.7 G/DL (3.4-5.0); ANION GAP 8 (8-16); BLOOD UREA NITROGEN 32 MG/DL (7-18); BUN/CREATININE RATIO 30.5 (10.0-20.0); CALCIUM 9.3 MG/DL (8.5-10.1); CHLORIDE 99 MMOL/L (99-107); CREATININE 1.05 MG/DL (0.60-1.10); GLUCOSE 144 MG/DL (70-104); MAGNESIUM 2.5 MG/DL (1.5-2.4); POTASSIUM 4.9 MMOL/L (3.5-5.1); SODIUM 136 MMOL/L (135-145); TOTAL CARBON DIOXIDE 29.2 MMOL/L (24-32); eCRCL 68 ML/MIN; eGFR 73 ML/MIN
[2024-08-21 08:00] VITALS: RESP 17; O2SAT 99
[2024-08-21] MEDS ORDERED: IPRA3AMP9 NEB (11:38)
[2024-08-21] MEDS ORDERED: PRED10TA23 PO (11:38)
[2024-08-21] MEDS ORDERED: PANT20TA18 PO (11:39)
[2024-08-21 12:00] VITALS: BP 101/69; PULSE 82; RESP 24; TEMP 97.3; O2SAT 97
[2024-08-21 15:00] VITALS: BP 118/68; PULSE 85; RESP 20; TEMP 97; O2SAT 96
== END 2024-08-21 15:00 | disposition home or self-care (01) | DRG 194 ==
LOC: ER 11:39 → ED HOLD 16:05 → UNDOADMIN 16:05 → ED HOLD 16:07 → PCU 3S 08-19 08:05
PROVIDERS: ADMIT Internal Medicine; ATTEND Internal Medicine
DX: I11.0 Hypertensive heart disease with heart failure (principal); E86.0 Dehydration; J44.1 Chronic obstructive pulmonary disease with (acute) exacerbation; I42.9 Cardiomyopathy, unspecified; E87.6 Hypokalemia; F12.90 Cannabis use, unspecified, uncomplicated; F15.90 Other stimulant use, unspecified, uncomplicated; I44.7 Left bundle-branch block, unspecified; I50.43 Acute on chronic combined systolic (congestive) and diastolic (congestive) heart failure; Z79.84 Long term (current) use of oral hypoglycemic drugs; Z88.0 Allergy status to penicillin; Z88.5 Allergy status to narcotic agent
CPT/HCPCS: 36415; 71045; 80048; 80053; 83735; 83880; 84484; 85025; 87081; 87502; 87503; 87811; 93005; 94640; 94760; 96374; 99285; A4615; G0378; J1940; J2919